=== PATIENT | male | born 1955 | race Caucasian/White ===

== ENCOUNTER → 2016-05-25 | Outpatient (CLI) | payer BC, OTHER ==
[~2016-05-25] MED LIST: ACET50TAOT PO; ALBU17IN INH; AMLO10TA2 PO; BUDE180INH INH; DOXY10CA PO; E-Z PAQUE 60% w/v SUSP 355ML BOTTLE As Ordered ONE; E-Z-GAS II EFFERVESCENT PACKET (SODIUM BICARB./CITRIC ACID/SIMETHICONE) As Ordered ONE; E-Z-HD 98% w/w 340GM SUSP BTL As Ordered ONE; IPRASOL4 NEB; LISI10TA4 PO; NICO2GUM62 PO; OMEP40CA2 PO; PRED10TA PO; PRED20TA PO; PRED20TAB PO; TIOT18INH INH
--- NOTE | 2016-05-25 16:33 | REP ---
UPPER GI, AIR CONTRAST: The procedure was performed under the direct supervision of Dr. Ortez. The images were reviewed with Dr. Ortez. The operations support analyst film shows no organomegaly or pathological masses. The intestinal gas pattern is nonspecific. Liquid barium and gas-producing granules were given in the erect position as well as liquid barium in the prone oblique position in order to perform a double-contrast upper GI examination. The oral and pharyngeal stage of deglutition are unremarkable. Esophageal transport is prompt and efficient and there is no esophagitis, stricture or mucosal ring. There is a hiatal hernia present. There is gastroesophageal reflux demonstrated to above the level of the mayte. The stomach osorio are normally outlined. The rugal folds are smooth and regular. There is no gastritis, neoplasm, or ulcer disease. The duodenal osorio are normally outlined. The mucosal folds are smooth and regular. There is no duodenitis, pancreatitis, peptic ulcer disease, or neoplasm. The visualized portion of the proximal small bowel appears normal in course and caliber. IMPRESSION: There is a hiatal hernia present. There is gastroesophageal reflux demonstrated to above the level of the mayte. Otherwise unremarkable double contrast upper GI examination. 2 minutes and 3 seconds of fluoroscopic time was utilized for this procedure. Reviewed by JEREMIAS Roberts 05/25/2016 04:39 PEdited and Signed by Gustavo Ortez MD 05/25/2016 04:50 P
== END ==
LOC: M RAD 09:34
PROVIDERS: ATTEND Family Medicine
DX: K21.9 Gastro-esophageal reflux disease without esophagitis (principal); K44.9 Diaphragmatic hernia without obstruction or gangrene

== ENCOUNTER → 2016-05-31 | Outpatient (CLI) | payer BC, OTHER ==
[~2016-05-31] MED LIST changes: -E-Z PAQUE 60% w/v SUSP 355ML BOTTLE As Ordered ONE; -E-Z-GAS II EFFERVESCENT PACKET (SODIUM BICARB./CITRIC ACID/SIMETHICONE) As Ordered ONE; -E-Z-HD 98% w/w 340GM SUSP BTL As Ordered ONE
[2016-05-31 11:04] LABS: MEAN CORPUSCULAR HEMOGLOBIN 28.3 pg (27.0-33.0); MEAN CORPUSCULAR HGB CONC 33.6 g/dl (32.0-36.5); MEAN CORPUSCULAR VOLUME 84.3 fl (80.0-96.0); WHITE BLOOD COUNT 5.9 K/mm3 (4.0-10.0)
[2016-05-31 11:34] LABS: ANION GAP 5 MEQ/L (8-16); AST/SGOT 28 U/L (15-37); BLOOD UREA NITROGEN 16 MG/DL (7-18); CARBON DIOXIDE LEVEL 31 MEQ/L (21-32); CHLORIDE LEVEL 104 MEQ/L (98-107); CREATININE FOR GFR 1.12 MG/DL (0.70-1.30); GLOMERULAR FILTRATION RATE > 60.0 (>56); GLUCOSE, FASTING 92 MG/DL (70-105); SODIUM LEVEL 140 MEQ/L (136-145)
[2016-05-31 11:35] LABS: ALBUMIN 4.1 GM/DL (3.2-5.2); ALBUMIN/GLOBULIN RATIO 1.41 (1.00-1.93); ALKALINE PHOSPHATASE 59 U/L (45-117); ALT/SGPT 60 U/L (12-78); BILIRUBIN,TOTAL 0.3 MG/DL (0.2-1.0); CHOLESTEROL LEVEL 176 MG/DL (<200); TRIGLYCERIDES LEVEL 172 MG/DL (<150)
== END ==
LOC: M LAB 10:23
PROVIDERS: ATTEND Family Medicine
DX: R10.9 Unspecified abdominal pain (principal); K27.9 Peptic ulcer, site unspecified, unspecified as acute or chronic, without hemorrhage or perforation

== ENCOUNTER 2016-06-15 11:41 | Emergency (ER) | payer BC, OTHER ==
[~2016-06-15] VITALS: Ht 182.9 cm; Wt 99.8 kg
[~2016-06-15 11:41] MED LIST changes: -AMLO5TAB2; -ZOFR4TAB3 PO
[2016-06-15] MEDS ORDERED: AMLO5TAB2 (11:59)
[2016-06-15] MEDS ORDERED: NS 1,000 ML IV ONE (12:45)
[2016-06-15] MEDS ORDERED: ONDANSETRON 4MG/2ML VIAL (J2405) IV ONE (12:45)
[2016-06-15] MEDS ORDERED: KETOROLAC 30 MG/ML VIAL (J1885) IV ONE (12:45)
[2016-06-15] MEDS ORDERED: ISOVUE-370 76% 100ML VIAL (Q9967) As Ordered ONE (13:05)
--- NOTE | 2016-06-15 16:00 | REP ---
CT ABDOMEN PELVIS WITH IV CONTRAST: 06/15/2016: Clinical history: Small bowel obstruction on plain radiograph today. Technique: Bolus of 100 mL as Isovue 370 scanning through the abdomen pelvis with both coronal and sagittal reconstructions provided. Comparison: X-ray 06/15/2016, upper GI 05/25/2016. Findings:CT abdomen: Lung bases show some minimal linear fibrotic or atelectatic changes without effusion or acute infiltrate. Epicardial fat pad is prominent along the left and right side of the heart. Fat tracts along the major fissure anteriorly. There is abundant fluid retained in the stomach without hiatal hernia. Heart not grossly enlarged. No pericardial thickening or effusion. No hepatosplenomegaly, focal hepatic or splenic mass nor intrahepatic biliary dilatation. The liver may have fatty infiltration. Gallbladder without calcified stone or mass. Pancreas without any inflammatory changes adjacent to it now or ductal dilatation. No focal splenic lesion. Adrenal glands are normal. Kidneys show function without obstruction, stone, mass or cyst. No perinephric fluid. The aorta is without aneurysm. There are a few scattered calcifications. There are dilated small bowel loops in a pattern similar to the morning abdominal series. The transition is not abrupt with some tapering in right upper quadrant loops seen on images 75 through 85. I do not see mesenteric adenopathy or edema. Cecum shows no evidence of an appendix in this patient with prior appendectomy nor pericecal edema/inflammatory changes. No perforation or free air in the abdomen or pelvis CT to suggest acute inflammatory process. There are scattered areas of diverticulosis in the left colon, less in the transverse and right colon. The aorta with atherosclerotic calcification without aneurysm. The kidneys show a posterior upper pole cyst about 13 mm on the right side. There is a right lower pole cyst but 18 mm. There are no other solid or cystic masses in either kidney nor stone. No adrenal lesion. CT pelvis: Bone windows shows the lumbar and thoracic vertebral bodies with minimal degenerative changes. Posterior elements intact. Visualized ribs intact. SI joints, iliac bones, acetabuli, ischia and hips are without fracture, focal lesion. Diverticulosis of the left colon, sigmoid without diverticulitis, colitis, stricture or mass. Bladder without mass or wall thickening. Trace amount of air within this may be related to Scanlon catheter insertion or infection with a gas-forming organism. I do not see any definite sign of a colovesical fistula. No ventral or inguinal hernia nor pathologic sized inguinal adenopathy. Impression: 1. Small bowel obstructive pattern with the transition zone in the right upper quadrant in the mid abdomen but it is a gradual tapering and not an abrupt process. Colon shows no sign of colitis or diverticulitis although there is diverticulosis. 2. No ascites, abscess, perforation or free air. 3. Solid organs in the upper abdomen, gallbladder, pancreas and adrenal glands unremarkable. 4. Upper and lower pole simple cysts in the right kidney with the kidneys otherwise intact. Minor degenerative changes in the spine. Signed by Hernando Pickering MD 06/15/2016 04:34 P
[2016-06-15] MEDS ORDERED: ZOFR4TAB3 PO (16:54)
[2016-06-15 17:09] VITALS: BP 143/84
--- NOTE | 2016-06-16 04:40 | ER ---
DATE OF CONSULTATION: 06/15/2016 REASON FOR CONSULTATION: CT suggesting small bowel obstruction. HISTORY OF PRESENT ILLNESS: The patient is a pleasant 60-year-old man who was feeling well until , 06/14. He reports having felt somewhat tired, but not in any pain and with no gastrointestinal (GI) symptoms early on the . At about 1700 on the , he developed some pain across the upper abdomen. He felt bloated or distended. He developed some nausea and also had vomiting. He developed diarrhea and was passing what he described as just brown water. He had a lot of belching. His vomiting and diarrhea persisted overnight. On the morning of the , he was seen at [facility] where he had an x-ray that apparently was suggestive of a bowel obstruction and he was referred to [facility]. He had also undergone some laboratory studies at the [facility]. In the emergency room, he was evaluated with physical exam and a CT scan of the abdomen and pelvis was obtained. This was interpreted as consistent with an obstruction and I am asked to evaluate the patient. ALLERGIES: The patient reports adverse reactions to ERYTHROMYCIN and LEVOFLOXACIN. MEDICATIONS: Include: - amlodipine besylate 5 mg by mouth daily - omeprazole 20 mg by mouth daily MEDICAL HISTORY: Significant for hypertension and gastroesophageal reflux. He has had, within the last couple of weeks, some left upper quadrant laterally placed abdominal discomfort and his primary physician, Dr. Adame had him undergo an upper GI series about a week to 10 days ago. SURGICAL HISTORY: Significant for an appendectomy at about age 11. He had a left inguinal hernia as an . He has had his tonsils out and has had several colonoscopies and an upper endoscopy about a year ago. FAMILY HISTORY: Noncontributory. SOCIAL HISTORY: He is accompanied by his spouse to the emergency department. He is a former smoker. REVIEW OF SYSTEMS: Reveals no history of seizure or stroke. He denies chest pain or palpitations. He has no cough, wheezing or sputum production. He denies any history of similar recent pain or intestinal symptoms. He denies any dysuria or hematuria. He has no bone or joint issues. He denies any history of deep venous thrombosis (DVT) or pulmonary embolus. PHYSICAL EXAMINATION: The patient's most recent vital signs show temperature of 97.5 with a pulse of 94, respirations of 16, and blood pressure of 134/88. He is alert, oriented and cooperative. He reports that he feels better than he has all day currently. He moves without hesitation and without apparent discomfort. Skin is warm and dry. Sclerae are anicteric. Mucous membranes are moist. The neck is supple. Heart exam shows a regular rate and rhythm and he is not tachycardiac. The lungs are clear to auscultation bilaterally. The abdomen is mildly protuberant. He has an oblique scar in his left lower quadrant consistent with a prior hernia. He has a more transverse scar in the right lower quadrant consistent with an appendectomy. There may be a small umbilical hernia as well. He has very active bowel sounds in all four quadrants. The abdomen is soft and nontender to palpation. No masses are appreciated. Extremities reveal no peripheral edema and he has palpable radial and dorsalis pedis pulses. LABORATORY STUDIES: From the [facility]gent [facility] show a white count of 8.9 with a hemoglobin of 18, hematocrit of 54 and a platelet count of 255,000. Differential count showed 80% neutrophils, 12 lymphocytes and 6 monocytes. His chemistry profile showed a sodium of 138, potassium 4.4, chloride 100, CO2 of 30, BUN of 20, creatinine 1.17 and a glucose of one. Liver function tests were normal. His CT scan I reviewed independently. He has some mildly dilated loops of small bowel in his proximal and mid small bowel. The bowel loops contain air and fluid. He has significant air still throughout his colon. The distal small bowel loops are somewhat more decompressed, but I am not convinced that he has a definite obstruction. There is no obvious bowel inflammation or other areas of inflammation within the abdomen. The gallbladder appears normal. IMPRESSION: 1. Gastroenteritis with vomiting and diarrhea. 2. History of hypertension. 3. Gastroesophageal reflux disease. 4. History of diverticulosis. RECOMMENDATIONS: I do not think that the patient needs to be admitted and he certainly has no indication for surgical intervention. I think his history is completely consistent with some form of gastroenteritis, likely viral. He is feeling better after medication here in the emergency department. I spoke with the physician assistant city attorney ([place]), Kameron Cowart and advised him that I thought it would be okay if the patient felt up to it or could be medicated adequately, for the patient to go home on an appropriate diet with the expectation that his symptoms would gradually resolve. If it was felt that the patient was not able to go home, either because of increasing or rather continued vomiting or an inability to take oral fluids or medications, that admission by the medical service would be appropriate. JOSE RAUL
== END 2016-06-15 17:11 | disposition home or self-care (01) ==
LOC: M ED 13:40
DX: K52.9 Noninfective gastroenteritis and colitis, unspecified (principal); K21.9 Gastro-esophageal reflux disease without esophagitis; E66.9 Obesity, unspecified; Z87.891 Personal history of nicotine dependence; Z79.899 Other long term (current) drug therapy; Z88.1 Allergy status to other antibiotic agents; Z91.030 Bee allergy status
CPT/HCPCS: 74177; 96374; 96375; 99282; J1885; J2405; Q9967

== ENCOUNTER → 2016-06-15 | Outpatient (CLI) | payer BC, OTHER ==
[~2016-06-15] MED LIST changes: +AMLO5TAB2; +ZOFR4TAB3 PO
[2016-06-15 12:23] LABS: MEAN CORPUSCULAR HEMOGLOBIN 28.8 pg (27.0-33.0); MEAN CORPUSCULAR HGB CONC 33.9 g/dl (32.0-36.5); MEAN CORPUSCULAR VOLUME 85.1 fl (80.0-96.0); RED CELL DISTRIBUTION WIDTH 13.4 % (11.5-14.5); WHITE BLOOD COUNT 8.9 K/mm3 (4.0-10.0)
[2016-06-15 12:49] LABS: ALBUMIN 4.5 GM/DL (3.2-5.2); ALKALINE PHOSPHATASE 67 U/L (45-117); ALT/SGPT 65 U/L (12-78); AMYLASE 45 U/L (25-115); ANION GAP 8 MEQ/L (8-16); AST/SGOT 22 U/L (15-37); BILIRUBIN,TOTAL 0.7 MG/DL (0.2-1.0); BLOOD UREA NITROGEN 20 MG/DL (7-18); CALCIUM LEVEL 9.3 MG/DL (8.5-10.1); CARBON DIOXIDE LEVEL 30 MEQ/L (21-32); CHLORIDE LEVEL 100 MEQ/L (98-107); CREATININE FOR GFR 1.17 MG/DL (0.70-1.30); GLOMERULAR FILTRATION RATE > 60.0 (>56); GLUCOSE, FASTING 132 MG/DL (70-105); POTASSIUM SERUM 4.4 MEQ/L (3.5-5.1); SODIUM LEVEL 138 MEQ/L (136-145); TOTAL PROTEIN 7.5 GM/DL (6.4-8.2)
--- NOTE | 2016-06-15 13:02 | REP ---
ABDOMINAL SERIES: Supine and erect views of the abdomen demonstrate no free air. There is evidence of moderate dilatation of the stomach as well as multiple small bowel loops, with air fluid levels seen on the upright view. Findings are consistent with small bowel obstruction. Small amount of air is seen in the rectum. An accompanying view of the chest demonstrates linear discoid atelectasis in each lung base without evidence of infiltrate. Heart does not appear to be significantly enlarged. IMPRESSION: Findings compatible with small bowel obstruction. Signed by Gustavo Ortez MD 06/15/2016 03:28 P
[2016-06-15 13:13] LABS: BANDS 5 % (< 11); EOSINOPHILS 1 % (0-5)
== END ==
LOC: M WUC 10:49
PROVIDERS: ATTEND Physician Assistant
DX: R10.816 Epigastric abdominal tenderness (principal); R93.3 Abnormal findings on diagnostic imaging of other parts of digestive tract

== ENCOUNTER → 2016-07-06 | Outpatient (CLI) | payer BC, OTHER ==
[~2016-07-06] MED LIST changes: +AMLO5TAB2; +ZOFR4TAB3 PO
[2016-07-06 08:36] LABS: THYROXINE (T4) 8.5 UG/DL (4.5-12.0)
--- NOTE | 2016-07-06 08:47 | REP ---
Clinical: Multinodular goiter. Technique: Real time schmidt scale and color evaluation using linear high frequency and curved array transducers. Comparison: 01/16/2016. Findings: The thyroid gland is enlarged and diffusely heterogeneous with multiple bilateral complex nodules and cysts. Findings are relatively similar to prior examination. Right lobe measures 7.4 x 3.1 x 3.3 cm with the largest nodule in the lower pole measuring 2.8 x 1.7 x 3.1 cm having scattered calcifications, cystic and soft tissue components. Left thyroid lobe measures 6.5 x 2.8 x 2.7 cm with the largest nodule in the mid pole measuring 2.4 x 1.8 x 2.2 cm having soft tissue and scattered calcifications. Impression: Multinodular goiter similar to prior examination. Scattered lesions demonstrating complex appearance with cystic, nodular soft tissue, and calcifications. Signed by Emil Allen MD 07/06/2016 08:37 A
== END ==
LOC: M LAB 07:02 → M RAD 07:02
PROVIDERS: ATTEND Physician Assistant Medical
DX: E04.2 Nontoxic multinodular goiter (principal)

== ENCOUNTER → 2016-11-26 | Outpatient (CLI) | payer BC ==
--- NOTE | 2016-11-27 01:35 | REP ---
Clinical: Lower back pain. Sciatica. Technique: AP, lateral, bilateral oblique, and coned-down views. Findings: Alignment and lordosis is maintained. The vertebral bodies including transverse process and spinous processes are intact and age appropriate. There is no evidence for acute fracture / compression injury or subluxation. No evidence for spondylolysis or spondylolisthesis. No significant, overt degenerative changes appreciated. Impression: Normal, age-appropriate lumbosacral spine radiograph series. If the patient remains symptomatic consider MRI for further investigation. Signed by Emil Allen MD 11/27/2016 01:26 A
== END ==
LOC: M RAD 11:05
PROVIDERS: ATTEND Family Medicine
DX: R07.9 Chest pain, unspecified (principal)

== ENCOUNTER → 2016-12-06 | Outpatient (CLI) | payer BC, OTHER ==
--- NOTE | 2016-12-06 14:32 | REP ---
MR LUMBAR SPINE WITHOUT CONTRAST: HISTORY: Back pain. Decreased signal intensity on T2-weighted images is present in the L1-2 and L3-4 through L5-S1 intervertebral discs. The discs are decreased in height. These findings are consistent with disc degeneration. There is no disc bulge or herniation at the L1-2 and L2-3 levels. The nerves exit the neural foramina without compression. A diffuse disc bulge is present at the L3-4 level. There is minimal compression of the thecal sac. There is hypertrophy of the posterior articulating facets. The L3 nerves exit the neural foramina without compression. A diffuse disc bulge is present at the L4-5 level. There is minimal compression of the thecal sac. There is hypertrophy of the posterior articulating facets. The L4 nerves exit the neural foramina without compression. A diffuse disc bulge is present at the L5-S1 level. There is minimal compression of the thecal sac. There is hypertrophy of the posterior articulating facets. The L5 nerves exit the neural foramina without compression. The conus medullaris is normal in appearance terminating at the level of the T12-L1 intervertebral disc. Increased signal intensity on T2-weighted images is present in the inferior endplate of the L5 vertebral body. This represents degenerative change. IMPRESSION: Diffuse disc bulges at the L3-4 through L5-S1 levels with minimal thecal sac compression. Signed by Maynor Ceron MD 12/06/2016 02:39 P
== END ==
LOC: M RAD 12:31
PROVIDERS: ATTEND Family Medicine
DX: M54.5 Low back pain (principal)

== ENCOUNTER → 2017-01-16 | Outpatient (CLI) | payer BC, OTHER ==
[~2017-01-16] MED LIST changes: -ACET50TAOT PO; -ALBU17IN INH; -AMLO10TA2 PO; -AMLO5TAB2; -BUDE180INH INH; -DOXY10CA PO; -IPRASOL4 NEB; +ISOVUE-370 76% 100ML VIAL (Q9967) As Ordered; -LISI10TA4 PO; -NICO2GUM62 PO; -OMEP40CA2 PO; -PRED10TA PO; -PRED20TA PO; -PRED20TAB PO; -TIOT18INH INH; -ZOFR4TAB3 PO
== END ==
LOC: M RAD 10:00
DX: Z53.9 Procedure and treatment not carried out, unspecified reason (principal)

== ENCOUNTER → 2017-03-11 | Outpatient (CLI) | payer OTHER, BC ==
[2017-03-11 13:35] LABS: BASO # 0.1 10^3/uL (0.0-0.2); EOS # 0.1 10^3/uL (0.0-0.50); HEMATOCRIT 50.1 % (42.0-52.0); HEMOGLOBIN 16.6 g/dl (14.0-18.0); IMMATURE GRANULOCYTE % 0.4 % (0-0); LYMPH # 2.1 10^3/uL (1.5-4.5); LYMPH % 30.7 % (24.0-44.0); MEAN CORPUSCULAR HGB CONC 33.1 g/dl (32.0-36.5); MEAN CORPUSCULAR VOLUME 84.6 fl (80.0-96.0); MONO # 0.5 10^3/uL (0.0-0.8); MONO % 7.6 % (0.0-5.0); NEUTROPHILS % 58.3 % (36.0-66.0); PLATELET COUNT, AUTOMATED 252 10^3/uL (150-450); RED BLOOD COUNT 5.92 10^6/uL (4.30-6.10); RED CELL DISTRIBUTION WIDTH 13.5 % (11.5-14.5); WHITE BLOOD COUNT 6.9 10^3/uL (4.0-10.0)
[2017-03-11 14:10] LABS: ALBUMIN 4.1 GM/DL (3.2-5.2); ALBUMIN/GLOBULIN RATIO 1.52 (1.00-1.93); ALKALINE PHOSPHATASE 51 U/L (45-117); ALT/SGPT 40 U/L (12-78); ANION GAP 5 MEQ/L (8-16); AST/SGOT 22 U/L (7-37); BILIRUBIN,TOTAL 0.4 MG/DL (0.2-1.0); BLOOD UREA NITROGEN 15 MG/DL (7-18); CALCIUM LEVEL 8.5 MG/DL (8.8-10.2); CARBON DIOXIDE LEVEL 32 MEQ/L (21-32); CHLORIDE LEVEL 102 MEQ/L (98-107); CREATININE FOR GFR 0.97 MG/DL (0.70-1.30); GLOMERULAR FILTRATION RATE > 60.0 (>49); GLUCOSE, FASTING 85 MG/DL (80-110); POTASSIUM SERUM 4.8 MEQ/L (3.5-5.1); SODIUM LEVEL 139 MEQ/L (136-145); THYROID STIMULATING HORMONE 0.701 uIU/ML (0.358-3.740); TOTAL PROTEIN 6.8 GM/DL (6.4-8.2)
== END ==
LOC: M WUC 10:20
DX: I10 Essential (primary) hypertension (principal)

== ENCOUNTER → 2017-03-14 | Outpatient (CLI) | payer BC, OTHER ==
[2017-03-14 09:43] LABS: HEMATOCRIT 48.6 % (42.0-52.0); HEMOGLOBIN 16.1 g/dl (14.0-18.0); MEAN CORPUSCULAR HGB CONC 33.1 g/dl (32.0-36.5); MEAN CORPUSCULAR VOLUME 84.4 fl (80.0-96.0); PLATELET COUNT, AUTOMATED 258 10^3/uL (150-450); RED BLOOD COUNT 5.76 10^6/uL (4.30-6.10); RED CELL DISTRIBUTION WIDTH 13.5 % (11.5-14.5); WHITE BLOOD COUNT 6.7 10^3/uL (4.0-10.0)
[2017-03-14 10:33] LABS: ALBUMIN/GLOBULIN RATIO 1.48 (1.00-1.93); ALKALINE PHOSPHATASE 52 U/L (45-117); ALT/SGPT 40 U/L (12-78); ANION GAP 6 MEQ/L (8-16); AST/SGOT 19 U/L (7-37); BILIRUBIN,TOTAL 0.4 MG/DL (0.2-1.0); BLOOD UREA NITROGEN 20 MG/DL (7-18); CALCIUM LEVEL 8.7 MG/DL (8.8-10.2); CARBON DIOXIDE LEVEL 31 MEQ/L (21-32); CHLORIDE LEVEL 104 MEQ/L (98-107); CHOLESTEROL LEVEL 184 MG/DL (<200); CHOLESTEROL RISK RATIO 4.842 (<5); CREATININE FOR GFR 1.12 MG/DL (0.70-1.30); GLOMERULAR FILTRATION RATE > 60.0 (>49); GLUCOSE, FASTING 89 MG/DL (80-110); HDL CHOLESTEROL 38 MG/DL (>40); LDL CHOLESTEROL 112.8 MG/DL (<100); NON-HDL-C 146 MG/DL; POTASSIUM SERUM 4.5 MEQ/L (3.5-5.1); PROSTATIC SPECIFIC AG MONITOR 2.14 NG/ML (< 4.0); SODIUM LEVEL 141 MEQ/L (136-145); THYROID STIMULATING HORMONE 0.498 uIU/ML (0.358-3.740); TOTAL PROTEIN 6.7 GM/DL (6.4-8.2); TRIGLYCERIDES LEVEL 166 MG/DL (<150)
[2017-03-14 10:35] LABS: ESTIMATED AVERAGE GLUCOSE 120 MG/DL (60-110); HEMOGLOBIN A1c 5.8 %
== END ==
LOC: M LAB 09:05
DX: I10 Essential (primary) hypertension (principal)
CPT/HCPCS: 84443

== ENCOUNTER → 2017-08-22 | Outpatient (CLI) | payer BC, OTHER ==
[2017-08-22 07:59] LABS: HEMATOCRIT 45.2 % (42.0-52.0); HEMOGLOBIN 14.9 g/dl (13.5-17.5); MEAN CORPUSCULAR HEMOGLOBIN 28.5 pg (27.0-33.0); MEAN CORPUSCULAR VOLUME 86.4 fl (80.0-96.0); PLATELET COUNT, AUTOMATED 256 10^3/uL (150-450); RED BLOOD COUNT 5.23 10^6/uL (4.30-6.10); RED CELL DISTRIBUTION WIDTH 13.9 % (11.5-14.5); WHITE BLOOD COUNT 7.1 10^3/uL (4.0-10.0)
[2017-08-22 09:52] LABS: ALBUMIN 3.7 GM/DL (3.2-5.2); ALBUMIN/GLOBULIN RATIO 1.28 (1.00-1.93); ALKALINE PHOSPHATASE 55 U/L (45-117); ALT/SGPT 36 U/L (12-78); ANION GAP 7 MEQ/L (8-16); AST/SGOT 19 U/L (7-37); BILIRUBIN,TOTAL 0.2 MG/DL (0.2-1.0); BLOOD UREA NITROGEN 17 MG/DL (7-18); CALCIUM LEVEL 8.2 MG/DL (8.8-10.2); CARBON DIOXIDE LEVEL 29 MEQ/L (21-32); CHLORIDE LEVEL 107 MEQ/L (98-107); CHOLESTEROL LEVEL 155 MG/DL (<200); CHOLESTEROL RISK RATIO 5.166 (<5); CREATININE FOR GFR 1.01 MG/DL (0.70-1.30); GLOMERULAR FILTRATION RATE > 60.0 (>49); GLUCOSE, FASTING 85 MG/DL (70-100); HDL CHOLESTEROL 30 MG/DL (>40); LDL CHOLESTEROL 69.2 MG/DL (<100); NON-HDL-C 125 MG/DL; POTASSIUM SERUM 4.2 MEQ/L (3.5-5.1); PROSTATIC SPECIFIC AG MONITOR 2.61 NG/ML (< 4.0); SODIUM LEVEL 143 MEQ/L (136-145); TOTAL PROTEIN 6.6 GM/DL (6.4-8.2); TRIGLYCERIDES LEVEL 279 MG/DL (<150)
[2017-08-22 10:01] LABS: ESTIMATED AVERAGE GLUCOSE 114 MG/DL (60-110); HEMOGLOBIN A1c 5.6 %
== END ==
LOC: M LAB 07:30
DX: E03.9 Hypothyroidism, unspecified (principal); R53.83 Other fatigue; I10 Essential (primary) hypertension
CPT/HCPCS: 71046

== ENCOUNTER → 2017-09-10 | Outpatient (CLI) | payer OTHER, BC ==
[2017-09-10 16:59] LABS: ALBUMIN/GLOBULIN RATIO 1.43 (1.00-1.93); ALKALINE PHOSPHATASE 49 U/L (45-117); ALT/SGPT 36 U/L (12-78); AST/SGOT 17 U/L (7-37); BILIRUBIN,DIRECT 0.1 MG/DL (0.0-0.2); BILIRUBIN,TOTAL 0.4 MG/DL (0.2-1.0); CHOLESTEROL LEVEL 179 MG/DL (<200); CHOLESTEROL RISK RATIO 4.589 (<5); HDL CHOLESTEROL 39 MG/DL (>40); LDL CHOLESTEROL 108.6 MG/DL (<100); NON-HDL-C 140 MG/DL; TOTAL PROTEIN 6.8 GM/DL (6.4-8.2); TRIGLYCERIDES LEVEL 157 MG/DL (<150)
== END ==
LOC: M WUC 10:46
DX: E78.5 Hyperlipidemia, unspecified (principal)
CPT/HCPCS: 80076

== ENCOUNTER → 2017-10-17 | Outpatient (CLI) | payer OTHER, BC ==
[2017-10-17 13:54] LABS: ALBUMIN 4.1 GM/DL (3.2-5.2); ALBUMIN/GLOBULIN RATIO 1.41 (1.00-1.93); ALKALINE PHOSPHATASE 47 U/L (45-117); ALT/SGPT 37 U/L (12-78); AST/SGOT 22 U/L (7-37); BILIRUBIN,DIRECT 0.2 MG/DL (0.0-0.2); BILIRUBIN,TOTAL 0.7 MG/DL (0.2-1.0); CHOLESTEROL LEVEL 121 MG/DL (<200); HDL CHOLESTEROL 44 MG/DL (>40); LDL CHOLESTEROL 57.8 MG/DL (<100); NON-HDL-C 77 MG/DL; TRIGLYCERIDES LEVEL 96 MG/DL (<150)
== END ==
LOC: M WUC 09:42
DX: E78.5 Hyperlipidemia, unspecified (principal)
CPT/HCPCS: 80076

== ENCOUNTER → 2018-11-17 | Outpatient (CLI) | payer OTHER, BC ==
[~2018-11-17] MED LIST changes: +ACET500T15 PO; +ALBU17IN INH; +AMLO10TA5 PO; +AMLO5TAB6; +BUDE180INH INH; +DOXY1TAB33 PO; +IPRA0.00 NEB; -ISOVUE-370 76% 100ML VIAL (Q9967) As Ordered; +LISI10TA4 PO; +NICO2GUM52 PO; +OMEP40CA2 PO; +PRED-351 PO; +PRED20TA PO; +PRED20TAB PO; +TIOT18INH INH; +ZOFR4TAB14 PO
[2018-11-17 13:25] LABS: HEMATOCRIT 48.2 % (42.0-52.0); MEAN CORPUSCULAR HGB CONC 33.2 g/dl (32.0-36.5); MEAN CORPUSCULAR VOLUME 87.5 fl (80.0-96.0); PLATELET COUNT, AUTOMATED 225 10^3/uL (150-450); RED BLOOD COUNT 5.51 10^6/uL (4.30-6.10); WHITE BLOOD COUNT 5.7 10^3/uL (4.0-10.0)
[2018-11-17 13:54] LABS: HEMOGLOBIN A1c 5.8 %
[2018-11-17 13:55] LABS: ALT/SGPT 42 U/L (12-78); BILIRUBIN,TOTAL 0.5 MG/DL (0.2-1.0); BLOOD UREA NITROGEN 17 MG/DL (7-18); CALCIUM LEVEL 8.6 MG/DL (8.8-10.2); CARBON DIOXIDE LEVEL 29 MEQ/L (21-32); CHLORIDE LEVEL 105 MEQ/L (98-107); CHOLESTEROL LEVEL 174 MG/DL (<200); CHOLESTEROL RISK RATIO 3.954 (<5); CREATININE FOR GFR 1.02 MG/DL (0.70-1.30); GLOMERULAR FILTRATION RATE > 60.0 (>49); GLUCOSE, FASTING 81 MG/DL (70-100); HDL CHOLESTEROL 44 MG/DL (>40); LDL CHOLESTEROL 97 MG/DL (<100); NON-HDL-C 130 MG/DL; POTASSIUM SERUM 4.5 MEQ/L (3.5-5.1); PROSTATIC SPECIFIC AG MONITOR 3.67 NG/ML (< 4.00); SODIUM LEVEL 141 MEQ/L (136-145); TESTOSTERONE 357 NG/DL (241-827); THYROID STIMULATING HORMONE 0.599 uIU/ML (0.358-3.740); TOTAL 25(OH) VITAMIN D 21.2 NG/ML (30.0-100.0); TOTAL PROTEIN 6.8 GM/DL (6.4-8.2); TRIGLYCERIDES LEVEL 163 MG/DL (<150)
--- NOTE | 2018-11-18 03:28 | REP ---
Clinical: Hypertension. COPD. Technique: PA and lateral. Comparison: 08/22/2017. Findings: Mediastinum and cardiac silhouette normal. Lung gibson demonstrate hyperinflation with oligemia consistent with COPD. No focal consolidation, effusion, or pneumothorax. Skeletal structures intact. Impression: COPD. Electronically Signed by Emil Allen MD 11/18/2018 03:21 A
--- NOTE | 2018-11-18 08:57 | ECGEPIP ---
[facility] Test Date: 2018-11-17 Pat Name: KARLOS ANN Department: Room: - Gender: Male Credentialing Coordinator: CRISPIN : [id number] Requested By: Fracisco Krishnan Order Number: [id number] Reading MD: Abundio Garrison Measurements Intervals [place] Rate: 63 P: 31 VA: 166 QRS: 33 QRSD: 82 T: 51 QT: 385 QTc: 397 Interpretive Statements SINUS RHYTHM Electronically Signed on 11-18-2018 8:56:58 EDT by Abundio Garrison
== END ==
LOC: M LAB 12:05
PROVIDERS: ATTEND Family Medicine
DX: I10 Essential (primary) hypertension (principal); J44.9 Chronic obstructive pulmonary disease, unspecified; R53.83 Other fatigue

== ENCOUNTER → 2018-11-20 | Outpatient (CLI) | payer BC, OTHER ==
[~2018-11-20] MED LIST changes: +GASTROGRAFIN SOLUTION 30ML (Q9963) As Ordered ONE; +ISOVUE-370 76% 100ML VIAL (Q9967) As Ordered ONE
--- NOTE | 2018-11-21 05:44 | REP ---
Clinical: Left upper quadrant mass Technique: Axial contrast enhanced images from the lung bases to the pubic symphysis using oral (per protocol) and 100 ml Isovue 370 intravenous contrast material with precontrast and delayed images of the abdomen as well as coronal and sagittal re-formations. Findings: Lung bases are clear. Visualized heart and pericardium normal. Diffuse fatty infiltration to the liver noted without focal hepatic lesion. Spleen, pancreas, gallbladder, bilateral adrenal glands and kidneys are normal. Incidental 2 cm and 1 cm right renal cysts are identified. The enteric system is without obstruction or acute inflammatory process. Sigmoid diverticulosis noted without acute diverticulitis. Pelvis demonstrates partially collapsed normal bladder and age appropriate prostate/seminal vesicles. No ascites. No free air. No adenopathy. Abdominal aorta and vasculature normal and without aneurysm or dissection. 1 cm fat containing periumbilical hernia identified. Musculoskeletal structures are intact without focal abnormality. Impression: 1. Sigmoid diverticula without acute diverticulitis. 2. Simple benign right renal cysts. 3. Hepatic steatosis without focal hepatic lesion. 4. No further acute abdominopelvic pathology appreciated. Electronically Signed by Emil Allen MD 11/21/2018 05:36 A
== END ==
LOC: M RAD 14:03
PROVIDERS: ATTEND Family Medicine
DX: R19.02 Left upper quadrant abdominal swelling, mass and lump (principal)

== ENCOUNTER → 2020-06-02 | Outpatient (CLI) | payer BC, OTHER ==
[~2020-06-02] MED LIST changes: -AMLO10TA5 PO; +AMLO1TAB24; +AMLO1TAB25 PO; -AMLO5TAB6; -GASTROGRAFIN SOLUTION 30ML (Q9963) As Ordered ONE; -ISOVUE-370 76% 100ML VIAL (Q9967) As Ordered ONE; +LISI10TA22 PO; -LISI10TA4 PO; +NICO-13 PO; -NICO2GUM52 PO; -OMEP40CA2 PO; +OMEP40CA97 PO
--- NOTE | 2020-06-02 08:13 | REP ---
INDICATION: HTN,FATIGUE, HYPOTHYROIDISM LAB 1ST EKG 2ND XR 3RD COMPARISON: 08/22/2017, 11/17/2018 TECHNIQUE: PA and lateral. FINDINGS: The mediastinum and cardiac silhouette are normal. The lung gibson are clear and without acute consolidation, effusion, or pneumothorax. The skeletal structures are intact and normal. IMPRESSION: No acute cardiopulmonary process. <Electronically signed by Emil Allen > 06/02/20 [id number]
[2020-06-02 09:22] LABS: HEMATOCRIT 49.3 % (42.0-52.0); HEMOGLOBIN 15.8 g/dl (13.5-17.5); MEAN CORPUSCULAR HEMOGLOBIN 28.1 pg (27.0-33.0); MEAN CORPUSCULAR VOLUME 87.6 fl (80.0-96.0); PLATELET COUNT, AUTOMATED 229 10^3/uL (150-450); RED BLOOD COUNT 5.63 10^6/uL (4.30-6.10); WHITE BLOOD COUNT 5.8 10^3/uL (4.0-10.0)
[2020-06-02 10:55] LABS: ALBUMIN 3.8 GM/DL (3.2-5.2); ALT/SGPT 102 U/L (12-78); BILIRUBIN,TOTAL 0.4 MG/DL (0.2-1.0); BLOOD UREA NITROGEN 13 MG/DL (7-18); CALCIUM LEVEL 8.7 MG/DL (8.8-10.2); CARBON DIOXIDE LEVEL 28 MEQ/L (21-32); CHLORIDE LEVEL 104 MEQ/L (98-107); CHOLESTEROL LEVEL 181 MG/DL (<200); CHOLESTEROL RISK RATIO 4.891 (<5); CREATININE FOR GFR 1.09 MG/DL (0.70-1.30); GLOMERULAR FILTRATION RATE > 60.0 (>49); GLUCOSE, FASTING 90 MG/DL (70-100); HDL CHOLESTEROL 37 MG/DL (>40); LDL CHOLESTEROL 108 MG/DL (<100); NON-HDL-C 144 MG/DL; POTASSIUM SERUM 4.3 MEQ/L (3.5-5.1); PROSTATIC SPECIFIC AG MONITOR 3.33 NG/ML (< 4.00); SODIUM LEVEL 139 MEQ/L (136-145); TESTOSTERONE 446 NG/DL (241-827); TOTAL PROTEIN 6.7 GM/DL (6.4-8.2); TRIGLYCERIDES LEVEL 182 MG/DL (<150)
--- NOTE | 2020-06-02 11:24 | ECGEPIP ---
[facility] Test Date: 2020-06-02 Pat Name: KARLOS ANN Department: Room: - Gender: Male Pierogi Maker: YARITZA : [id number] Requested By: Fracisco Krishnan Order Number: [id number] Reading MD: Abundio Garrison Measurements Intervals [place] Rate: 62 P: 34 VA: 164 QRS: 31 QRSD: 84 T: 38 QT: 396 QTc: 401 Interpretive Statements Normal sinus rhythm Similar to tracing done 11-17-2018 Electronically Signed on 06-02-2020 11:24:20 EDT by Abundio Garrison
[2020-06-02 12:59] LABS: HEMOGLOBIN A1c 5.5 %
== END ==
LOC: M LAB 07:13
PROVIDERS: ATTEND Family Medicine
DX: R53.83 Other fatigue (principal); I10 Essential (primary) hypertension; E03.9 Hypothyroidism, unspecified

== ENCOUNTER → 2020-12-20 | Outpatient (CLI) | payer BC, OTHER ==
[~2020-12-20] MED LIST changes: +OMEP40CA4 PO; -OMEP40CA97 PO
--- NOTE | 2020-12-20 13:03 | REP ---
INDICATION: CERVICAL OA-GOING TO LAB FIRST COMPARISON: None. TECHNIQUE: AP, lateral, flexion/extension, bilateral oblique, and open-mouth views. FINDINGS: Straightening of normal lordosis noted. Alignment is maintained.. There is no evidence for acute fracture / compression injury or subluxation. Open mouth view demonstrates normal C1-C2 articulation and odontoid process. Moderate multilevel degenerative changes include endplate sclerosis, osteophytosis and disc space narrowing primarily involving C4-5 and C5-6 and to a lesser extent C6-7. neural foramen appear patent bilaterally. IMPRESSION: Moderate multilevel degenerative spondylosis. <Electronically signed by Emil Allen > 12/20/20 [id number]
--- NOTE | 2020-12-20 13:04 | REP ---
INDICATION: CERVICAL OA COMPARISON: None. TECHNIQUE: Neutral, internal rotation, external rotation, axillary and Y view. FINDINGS: Acromioclavicular and glenohumeral joints are intact and without fracture or dislocation. Very subtle cortical spurring at the acromioclavicular joint noted along with subtle cystic changes to the humeral head/greater tuberosity. Small calcific density identified adjacent to the greater tuberosity on external rotation view consistent with tendinopathy. Sub acromial space is normal. IMPRESSION: Relatively mild degenerative changes <Electronically signed by Emil Allen > 12/20/20 1301
[2020-12-21 13:07] LABS: Lyme Disease IgG/IgM Antibodie <0.91 ISR (0.00-0.90); Lyme Disease IgM Ab Quantitati <0.80 index (0.00-0.79)
== END ==
LOC: M LAB 11:02
PROVIDERS: ATTEND Family Medicine
DX: M15.9 Polyosteoarthritis, unspecified (principal)

== ENCOUNTER → 2022-01-15 | Outpatient (CLI) | payer MEDICARE, BC, OTHER ==
[2022-01-15 12:00] LABS: HEMATOCRIT 51.9 % (42.0-52.0); HEMOGLOBIN 16.9 g/dl (13.5-17.5); MEAN CORPUSCULAR HEMOGLOBIN 27.7 pg (27.0-33.0); MEAN CORPUSCULAR HGB CONC 32.6 g/dl (32.0-36.5); MEAN CORPUSCULAR VOLUME 85.1 fl (80.0-96.0); PLATELET COUNT, AUTOMATED 235 10^3/uL (150-450); WHITE BLOOD COUNT 5.2 10^3/uL (4.0-10.0)
[2022-01-15 12:45] LABS: ALBUMIN 4.2 GM/DL (3.2-5.2); ALT/SGPT 56 U/L (12-78); BILIRUBIN,TOTAL 0.6 MG/DL (0.2-1.0); BLOOD UREA NITROGEN 14 MG/DL (7-18); CARBON DIOXIDE LEVEL 29 MEQ/L (21-32); CHLORIDE LEVEL 103 MEQ/L (98-107); CHOLESTEROL LEVEL 185 MG/DL (<200); CHOLESTEROL RISK RATIO 5.441 (<5); CREATININE FOR GFR 1.12 MG/DL (0.70-1.30); GLOMERULAR FILTRATION RATE > 60.0 (>49); GLUCOSE, FASTING 99 MG/DL (70-100); HDL CHOLESTEROL 34 MG/DL (>40); LDL CHOLESTEROL 121 MG/DL (<100); NON-HDL-C 151 MG/DL; POTASSIUM SERUM 4.6 MEQ/L (3.5-5.1); PROSTATIC SPECIFIC AG MONITOR 4.65 NG/ML (< 4.00); SODIUM LEVEL 135 MEQ/L (136-145); THYROID STIMULATING HORMONE 0.449 uIU/ML (0.358-3.740); TOTAL PROTEIN 7.3 GM/DL (6.4-8.2); TRIGLYCERIDES LEVEL 149 MG/DL (<150)
[2022-01-15 13:00] LABS: HEMOGLOBIN A1c 5.7 %
[2022-01-15 13:12] LABS: TESTOSTERONE 444 NG/DL (241-827)
== END ==
LOC: M LAB 10:57
PROVIDERS: ATTEND Family Medicine
DX: R53.83 Other fatigue (principal); I10 Essential (primary) hypertension; E03.9 Hypothyroidism, unspecified; Z79.899 Other long term (current) drug therapy; R97.20 Elevated prostate specific antigen [PSA]

== ENCOUNTER → 2022-07-06 | Outpatient (CLI) | payer MEDICARE, BC, OTHER | LOC: M RAD 12:11 | PROVIDERS: ATTEND Family Medicine | DX: I10 Essential (primary) hypertension (principal) ==

== ENCOUNTER → 2023-08-08 | Outpatient (CLI) | payer MEDICARE, BC ==
[2023-08-08 12:12] LABS: HEMATOCRIT 47.6 % (42.0-52.0); HEMOGLOBIN 15.7 g/dl (13.5-17.5); MEAN CORPUSCULAR HEMOGLOBIN 27.6 pg (27.0-33.0); MEAN CORPUSCULAR VOLUME 83.7 fl (80.0-96.0); PLATELET COUNT, AUTOMATED 245 10^3/uL (150-450); RED BLOOD COUNT 5.69 10^6/uL (4.30-6.10); WHITE BLOOD COUNT 5.1 10^3/uL (4.0-10.0)
[2023-08-08 12:33] LABS: HEMOGLOBIN A1c 5.6 % (4.0-6.0)
[2023-08-08 12:46] LABS: ALBUMIN 3.9 G/DL (3.2-5.2); ALKALINE PHOSPHATASE 47 U/L (46-116); ALT/SGPT 33 U/L (7.0-40); AST/SGOT 21 U/L (<34); BILIRUBIN,TOTAL 0.5 MG/DL (0.3-1.2); BLOOD UREA NITROGEN 15 MG/DL (9-23); CALCIUM LEVEL 9.2 MG/DL (8.3-10.6); CARBON DIOXIDE LEVEL 30 MMOL/L (20-31); CHLORIDE LEVEL 103 MMOL/L (98-107); CHOLESTEROL LEVEL 166 MG/DL (<200); CHOLESTEROL RISK RATIO 4.07 (<5); CREATININE FOR GFR 1.08 MG/DL (0.70-1.30); GLOMERULAR FILTRATION RATE > 60.0 (>49); GLUCOSE, FASTING 103 MG/DL (74-106); HDL CHOLESTEROL 40.7 MG/DL (>40); LDL CHOLESTEROL 103.3 MG/DL (<100); NON-HDL-C 125.3 MG/DL; POTASSIUM SERUM 4.3 MMOL/L (3.5-5.1); PSA SCREENING 4.61 NG/ML (< 4.00); SODIUM LEVEL 136 MMOL/L (136-145); TOTAL PROTEIN 6.5 G/DL (5.7-8.2); TRIGLYCERIDES LEVEL 110 MG/DL (<150)
[2023-08-08 12:47] LABS: THYROID STIMULATING HORMONE 0.504 uIU/ML (0.55-4.78); TOTAL 25(OH) VITAMIN D 24.8 NG/ML (20.0-100.0)
[2023-08-08 12:48] LABS: TESTOSTERONE 471 NG/DL (241-827)
== END ==
LOC: M RAD 11:25
PROVIDERS: ATTEND Family Medicine
DX: I10 Essential (primary) hypertension (principal); R53.83 Other fatigue; E03.9 Hypothyroidism, unspecified; Z12.5 Encounter for screening for malignant neoplasm of prostate; Z79.899 Other long term (current) drug therapy
CPT/HCPCS: 36415; 71046; 80053; 80061; 82306; 83036; 84403; 84443; 85027; 93005; G0103

== ENCOUNTER → 2024-09-07 | Outpatient (CLI) | payer MEDICARE, BC ==
[~2024-09-07] MED LIST changes: +BUDE180A2 INH; -BUDE180INH INH
== END ==
LOC: M PLALAB 11:48
PROVIDERS: ATTEND Physician Assistant
DX: R97.20 Elevated prostate specific antigen [PSA] (principal)

== ENCOUNTER → 2025-02-08 | Outpatient (CLI) | payer MEDICARE, BC | LOC: M RAD 13:10 | PROVIDERS: ATTEND Student in an Organized Health Care Education/Training Program | DX: Z12.2 Encounter for screening for malignant neoplasm of respiratory organs (principal); F17.210 Nicotine dependence, cigarettes, uncomplicated ==